=== PATIENT | female | born 1965 | race African-American/Black ===

== ENCOUNTER 2018-05-12 00:47 | Emergency (ER) | payer SELFPAY ==
[~2018-05-12] VITALS: Ht 162.6 cm; Wt 64.0 kg
[2018-05-12 00:50] VITALS: BP 203/135
== END 2018-05-12 05:00 | disposition left against medical advice (07) ==
LOC: ER 00:47
DX: Z53.21 Procedure and treatment not carried out due to patient leaving prior to being seen by health care provider (principal)